=== PATIENT | male | born 1975 | race Caucasian/White ===

== ENCOUNTER 2020-09-09 09:42 | Emergency (ER) | payer OTHER | END 2020-09-09 10:28 | disposition home or self-care (01) | LOC: JVIRT 09:42 | DX: Z20.822 Contact with and (suspected) exposure to COVID-19 (principal) | CPT/HCPCS: C9803; G2251-GT; Q3014-GT; U0003 ==

== ENCOUNTER 2020-09-11 10:29 | Emergency (ER) | payer OTHER | END 2020-09-11 20:07 | disposition home or self-care (01) | LOC: JVIRT 10:29 | DX: Z11.52 Encounter for screening for COVID-19 (principal) | CPT/HCPCS: C9803; G2251-GT; Q3014-GT; U0003 ==

== ENCOUNTER 2021-08-04 11:24 | Emergency (ER) | payer OTHER | END 2021-08-04 18:00 | LOC: JVIRT 11:24 | DX: Z20.822 Contact with and (suspected) exposure to COVID-19 (principal) | CPT/HCPCS: C9803; Q3014-GT; U0003; U0005 ==